=== PATIENT | male | born 1980 | race Caucasian/White ===

== ENCOUNTER 2021-01-06 09:03 | Emergency (ER) | payer OTHER ==
[~2021-01-06] VITALS: Ht 165.1 cm; Wt 81.6 kg
[2021-01-06 09:30] LABS: BASOPHIL 0.6 % (0-2); HCT 52.9 % (42.0-52.0); HGB 18.5 g/dl (13.2-18.0); LYMPHOCYTE 25.4 % (15-48); MCH 35.2 pg (25.0-31.0); MCV 100.6 fL (78.0-100.0); MONOCYTE 7.6 % (0-12); MPV 9.6 fL (6.0-9.5); NEUTROPHIL 62.6 % (41-80); NRBC 0; PLT 240 K/uL (150-400); RBC 5.26 M/uL (4.70-6.00); RDW 12.6 % (11.5-14.0); WBC 7.9 K/uL (4.0-10.5)
[2021-01-06 09:57] LABS: ALBUMIN 3.8 g/dL (3.4-5.0); BILIRUBIN - TOTAL 0.7 mg/dL (0.2-1.0); BUN/CREAT RATIO (CALC) 9.3 RATIO; CREATININE 1.07 mg/dL (0.67-1.17); GLOBULIN (CALCULATION) 4.1 g/dL; POTASSIUM 4.2 mmol/L (3.5-5.1); TOTAL PROTEIN 7.9 g/dL (6.4-8.2)
[2021-01-06 11:47] LABS: ECSTASY (MDMA) NEGATIVE (NEGATIVE); MARIJUANA (THC) NEGATIVE (NEGATIVE); METHADONE NEGATIVE (NEGATIVE); OPIATES NEGATIVE (NEGATIVE)
[2021-01-06 11:48] LABS: AMPHETAMINES NEGATIVE (NEGATIVE); BARBITURATES NEGATIVE (NEGATIVE); OXYCODONE NEGATIVE (NEGATIVE)
== END 2021-01-06 12:00 | disposition home or self-care (01) ==
LOC: FER 09:03
PROVIDERS: Emergency Medicine
DX: R07.89 Other chest pain (principal); R03.0 Elevated blood-pressure reading, without diagnosis of hypertension; F17.200 Nicotine dependence, unspecified, uncomplicated; Z20.822 Contact with and (suspected) exposure to COVID-19
CPT/HCPCS: 36415; 36600; 71045; 71275; 80053; 80305; 82803; 84484; 85025; 85379; 93005; Q9967; U0002